=== PATIENT | female | born 1990 | race Caucasian/White ===

== ENCOUNTER 2017-10-08 11:20 | Emergency (ER) | payer SELFPAY ==
[~2017-10-08] VITALS: Ht 177.8 cm; Wt 122.5 kg
[~2017-10-08 11:20] MED LIST: ABILIFY10 MG PO; ALBUTEROL0.09 MG/A2 IH; ALBUTEROL0.09 MG/A2 INH; AMOXICILLIN500 MG PO; AMOXIL500 MG PO; ANTI-GAS 8080 MG PO; ATENOLOL25 MG PO; ATIVAN1 MG PO; Anusol Hc,Anuco25 MG PO; BACTRIM DS 8001 TA1 PO; BIAXIN500 MG PO; BIRTH CONTROL PO; CATAFLAM50 MG PO; CIPRO250 MG PO; CIPRO500 MG PO; CLARITIN10 MG PO; DARVOCET N 1001 TAB PO; DAYPRO600 M1 PO; DEPO-SUBQ104 MG/0.6 SC; DILANTIN PO; DONNATAL1 TAB PO; FLAGYL500 MG PO; GEODON20 MG PO; GEODON40 MG PO; HYDROCODONE BIT1 T11 PO; KEFLEX500 MG PO; KENALOG0.025% TP; KLONOPIN2 MG PO; LEVAQUIN750 MG PO; LEVOFLOXACIN500 MG PO; LITHIUM CARBON150 MG PO; LOMOTIL 0.025 M1 TA1 PO; MACROBID100 M1 PO; MEDROL DOSEPAK4 MG PO; MOTRIN800 MG PO; NKHM; OMNICEF300 MG PO; PERCOCET 325 MG1 TA2 PO; PREDNICOT20 MG PO; PREDNISONE20 M1 PO; PRENA1 CHEW1 CT1 PO; PRENATA CHEWAB1 EACH PO; PRILOSEC20 M1 PO; PROTONIX40 MG PO; PROVENTIL0.09 MG/AC IH; Phenergan25 MG PO; REGLAN10 M1 PO; RISPERDAL1 MG PO; ROBITUSSIN AC 110 ML PO; SAPHRIS5 MG PO; SEROQUEL50 MG PO; SINGULAIR5 MG PO; TESSALON PERLE200 MG PO; TOPAMAX100 MG PO; TOPAMAX50 MG PO; TORADOL10 MG PO; VALIUM10 MG PO; VALIUM5 MG PO; VICODIN 5/500 505 MG PO; VISTARIL25 M1 PO; VOLTAREN50 M1 PO; XANAX0.25 MG PO; XANAX1 MG PO; ZITHROMAX Z PA250 MG PO; ZITHROMAX250 MG PO; ZOFRAN ODT4 MG SL; ZOFRAN8 MG PO; ZYRTEC10 MG PO
[2017-10-08 11:34] VITALS: BP 128/80
== END 2017-10-08 13:14 | disposition home or self-care (01) ==
LOC: ED 11:20
DX: S92.511A Displaced fracture of proximal phalanx of right lesser toe(s), initial encounter for closed fracture (principal); F41.9 Anxiety disorder, unspecified; F17.200 Nicotine dependence, unspecified, uncomplicated; F10.10 Alcohol abuse, uncomplicated; W22.8XXA Striking against or struck by other objects, initial encounter; Y93.89 Activity, other specified; Y92.89 Other specified places as the place of occurrence of the external cause; Y99.8 Other external cause status

== ENCOUNTER 2017-11-25 13:52 | Emergency (ER) | payer SELFPAY ==
[~2017-11-25] VITALS: Ht 177.8 cm; Wt 131.5 kg
[2017-11-25] MEDS ORDERED: LEVETIRACETAM500 MG PO (14:22)
[2017-11-25] MEDS ORDERED: NATURE'S BLEND F1 MG PO (14:23)
[2017-11-25] MEDS ORDERED: BACLOFEN20 M1 PO (14:23)
[2017-11-25] MEDS ORDERED: MIRTAZAPINE7.5 MG PO (14:24)
[2017-11-25] MEDS ORDERED: PROPRANOLOL HCL10 MG PO (14:24)
[2017-11-25] MEDS ORDERED: DIVALPROEX SOD250 MG PO (14:24)
[2017-11-25 15:04] LABS: HEMOGLOBIN 14.3 g/dl (12.0-16.0); LYMPH # 2.6 10*3/uL (1.3-4.4); LYMPH % 30.2 % (27.0-41.0); MEAN CELL VOLUME 92.8 fl (81.0-99.0); MEAN CORPUSCULAR HGB 30.2 pg (27.0-31.0); MEAN CORPUSCULAR HGB CONC 32.5 g/dl (33.0-37.0); MEAN PLATELET VOLUME 8.7 fl (9.6-12.3); MONO # 0.6 10*3/uL (0.1-1.0); MONO % 6.7 % (3.0-9.0); NEUT # 5.3 10*3/uL (2.3-7.9); NEUT % 62.9 % (47.0-73.0); PLATELET COUNT AUTOMATED 316 10*3/uL (130-400); RED BLOOD COUNT 4.74 10*6/uL (4.10-5.10); RED CELL DISTRI WIDTH 12.4 % (0-14.5); WHITE BLOOD COUNT 8.5 10*3/uL (4.8-10.8)
[2017-11-25 15:19] LABS: ALBUMIN 3.8 gm/dl (3.1-4.5); ALKALINE PHOSPHATASE 82 U/L (45-117); BUN 11 mg/dl (7-24); CHLORIDE 104 mmol/L (98-107); POTASSIUM 3.9 mmol/L (3.5-5.1); SGOT/AST 12 IU/L (3-35); SGPT/ALT 19 U/L (12-78); SODIUM 140 mmol/L (136-145); TOTAL PROTEIN 8.9 gm/dL (6.4-8.2)
[2017-11-25 18:12] VITALS: BP 110/68
[2017-11-25] MEDS ORDERED: FIORICET 50-301 EACH PO (18:19)
== END 2017-11-25 18:14 | disposition home or self-care (01) ==
LOC: ED 13:52
PROVIDERS: Nurse Practitioner Family
DX: G43.909 Migraine, unspecified, not intractable, without status migrainosus (principal); F17.200 Nicotine dependence, unspecified, uncomplicated; Z79.899 Other long term (current) drug therapy

== ENCOUNTER 2017-12-08 17:22 | Emergency (ER) | payer SELFPAY ==
[~2017-12-08] VITALS: Ht 177.8 cm; Wt 113.4 kg
[~2017-12-08 17:22] MED LIST changes: +BACLOFEN20 M1 PO; +DIVALPROEX SOD250 MG PO; +FIORICET 50-301 EACH PO; +LEVETIRACETAM500 MG PO; +MIRTAZAPINE7.5 MG PO; +NATURE'S BLEND F1 MG PO; +PROPRANOLOL HCL10 MG PO
[2017-12-08 17:34] VITALS: BP 139/71
[2017-12-08 18:09] LABS: BASO % 0.1 % (0.0-1.0); HEMATOCRIT 39.5 % (37.0-47.0); HEMOGLOBIN 13.2 g/dl (12.0-16.0); LYMPH # 1.3 10*3/uL (1.3-4.4); LYMPH % 8.5 % (27.0-41.0); MEAN CELL VOLUME 89.2 fl (81.0-99.0); MEAN CORPUSCULAR HGB 29.8 pg (27.0-31.0); MEAN CORPUSCULAR HGB CONC 33.4 g/dl (33.0-37.0); MEAN PLATELET VOLUME 8.6 fl (9.6-12.3); MONO # 0.7 10*3/uL (0.1-1.0); MONO % 4.2 % (3.0-9.0); NEUT # 13.6 10*3/uL (2.3-7.9); NEUT % 86.7 % (47.0-73.0); PLATELET COUNT AUTOMATED 310 10*3/uL (130-400); RED BLOOD COUNT 4.43 10*6/uL (4.10-5.10); RED CELL DISTRI WIDTH 12.3 % (0-14.5); WHITE BLOOD COUNT 15.6 10*3/uL (4.8-10.8)
[2017-12-08 18:23] LABS: ALBUMIN 3.4 gm/dl (3.1-4.5); ALKALINE PHOSPHATASE 87 U/L (45-117); BUN 12 mg/dl (7-24); CHLORIDE 105 mmol/L (98-107); CREATININE 0.98 mg/dL (0.55-1.02); POTASSIUM 3.3 mmol/L (3.5-5.1); SGOT/AST 14 IU/L (3-35); SGPT/ALT 22 U/L (12-78); SODIUM 138 mmol/L (136-145); TOTAL PROTEIN 8.5 gm/dL (6.4-8.2); VALPROIC ACID (DEPAKENE) 11.6 ug/ml (50-100)
[2017-12-08 18:25] LABS: B-hCG (QUALITATIVE) NEGATIVE (NEGATIVE)
== END 2017-12-08 20:30 | disposition home or self-care (01) ==
LOC: ED 17:22
PROVIDERS: Emergency Medicine
DX: G40.409 Other generalized epilepsy and epileptic syndromes, not intractable, without status epilepticus (principal); R11.2 Nausea with vomiting, unspecified; G43.909 Migraine, unspecified, not intractable, without status migrainosus; F17.200 Nicotine dependence, unspecified, uncomplicated; Z79.899 Other long term (current) drug therapy

== ENCOUNTER 2018-04-22 05:31 | Emergency (ER) | payer SELFPAY ==
[~2018-04-22] VITALS: Ht 177.8 cm; Wt 113.4 kg
[2018-04-22 05:34] VITALS: BP 137/80
[2018-04-22] MEDS ORDERED: CLINDAMYCIN150 MG PO (05:38)
== END 2018-04-22 06:24 | disposition home or self-care (01) ==
LOC: ED 05:31
DX: K08.89 Other specified disorders of teeth and supporting structures (principal); G40.802 Other epilepsy, not intractable, without status epilepticus; G43.909 Migraine, unspecified, not intractable, without status migrainosus; Z98.890 Other specified postprocedural states; Z79.899 Other long term (current) drug therapy; Z88.8 Allergy status to other drugs, medicaments and biological substances

== ENCOUNTER 2019-06-30 08:41 | Emergency (ER) | payer SELFPAY ==
[~2019-06-30] VITALS: Ht 177.8 cm; Wt 104.3 kg
[~2019-06-30 08:41] MED LIST changes: +CLINDAMYCIN150 MG PO; +DICYCLOMINE HCL10 MG PO
[2019-06-30 08:43] VITALS: BP 136/82
[2019-06-30 09:31] LABS: BASO % 0.2 % (0.0-1.0); HEMATOCRIT 38.8 % (37.0-47.0); HEMOGLOBIN 12.8 g/dl (12.0-16.0); LYMPH # 1.8 10*3/uL (1.3-4.4); LYMPH % 31.1 % (27.0-41.0); MEAN CELL VOLUME 92.2 fl (81.0-99.0); MEAN CORPUSCULAR HGB 30.4 pg (27.0-31.0); MONO # 0.4 10*3/uL (0.1-1.0); MONO % 6.4 % (3.0-9.0); NEUT # 3.6 10*3/uL (2.3-7.9); PLATELET COUNT AUTOMATED 286 10*3/uL (130-400); RED BLOOD COUNT 4.21 10*6/uL (4.10-5.10); RED CELL DISTRI WIDTH 12.1 % (0-14.5); WHITE BLOOD COUNT 5.8 10*3/uL (4.8-10.8)
[2019-06-30 09:45] LABS: ALBUMIN 3.6 gm/dl (3.1-4.5); ALKALINE PHOSPHATASE 66 U/L (45-117); BUN 11 mg/dl (7-24); CHLORIDE 109 mmol/L (98-107); CREATININE 0.93 mg/dL (0.55-1.02); POTASSIUM 3.6 mmol/L (3.5-5.1); SGOT/AST 19 IU/L (3-35); SGPT/ALT 30 U/L (12-78); SODIUM 141 mmol/L (136-145); TOTAL PROTEIN 7.3 gm/dL (6.4-8.2)
[2019-06-30 09:48] LABS: BETA-HCG, QUANT < 1.0 mIU/mL (1-3)
== END 2019-06-30 10:36 | disposition home or self-care (01) ==
LOC: ED 08:41
PROVIDERS: Nurse Practitioner Family
DX: N93.8 Other specified abnormal uterine and vaginal bleeding (principal); F17.200 Nicotine dependence, unspecified, uncomplicated; Z79.899 Other long term (current) drug therapy; Z88.8 Allergy status to other drugs, medicaments and biological substances

== ENCOUNTER 2021-06-19 19:38 | Emergency (ER) | payer OTHER ==
[2021-06-19 19:43] VITALS: BP 150/75
== END 2021-06-19 21:57 | disposition home or self-care (01) ==
LOC: ED 19:38
DX: R06.00 Dyspnea, unspecified (principal); R14.0 Abdominal distension (gaseous); Z88.8 Allergy status to other drugs, medicaments and biological substances; Z79.899 Other long term (current) drug therapy

== ENCOUNTER 2021-12-12 09:32 | Emergency (ER) | payer OTHER ==
[~2021-12-12] VITALS: Ht 177.8 cm; Wt 121.1 kg
[2021-12-12 09:46] VITALS: BP 121/64
[2021-12-12 10:48] LABS: BASO % 0.2 % (0.0-1.0); HEMATOCRIT 43.7 % (37.0-47.0); LYMPH # 2.1 10*3/uL (1.3-4.4); LYMPH % 32.2 % (27.0-41.0); MEAN CELL VOLUME 89.4 fl (81.0-99.0); MEAN CORPUSCULAR HGB 29.7 pg (27.0-31.0); MEAN CORPUSCULAR HGB CONC 33.2 g/dl (33.0-37.0); MONO # 0.4 10*3/uL (0.1-1.0); MONO % 6.3 % (3.0-9.0); NEUT # 3.9 10*3/uL (2.3-7.9); NEUT % 61.1 % (47.0-73.0); PLATELET COUNT AUTOMATED 299 10*3/uL (130-400); RED BLOOD COUNT 4.89 10*6/uL (4.10-5.10); WHITE BLOOD COUNT 6.4 10*3/uL (4.8-10.8)
[2021-12-12 11:09] LABS: ALKALINE PHOSPHATASE 74 U/L (45-117); BUN 11 mg/dl (7-24); CHLORIDE 111 mmol/L (98-107); CREATININE 0.86 mg/dL (0.55-1.02); LIPASE 73 U/L (73-393); SGOT/AST 13 IU/L (3-35); SGPT/ALT 21 U/L (12-78); SODIUM 140 mmol/L (136-145)
[2021-12-12 11:35] LABS: BILIRUBIN Negative (Negative); BLOOD Negative (Negative); CLARITY Cloudy (Clear); COLOR Yellow (Yellow); GLUCOSE Negative (Negative); KETONE Negative (Negative); LEUKO ESTERASE 3+ (Negative); NITRITE Negative (Negative); PH 5.5 (4.5-8.0); SPECIFIC GRAVITY 1.015 (1.001-1.030)
[2021-12-12 11:44] LABS: BACTERIA TRACE; WBC 51-100 wbc/hpf (0-5)
[2021-12-12] MEDS ORDERED: MACROBID100 M1 PO (13:52)
[2021-12-12] MEDS ORDERED: NAPROXEN250 MG PO (13:52)
[2021-12-12] MEDS ORDERED: TYLENOL325 M1 PO (13:52)
[2021-12-12] MEDS ORDERED: CYCLOBENZAPRINE10 MG PO (13:58)
== END 2021-12-12 14:08 | disposition home or self-care (01) ==
LOC: ED 09:32
PROVIDERS: Emergency Medicine
DX: N39.0 Urinary tract infection, site not specified (principal); Z88.8 Allergy status to other drugs, medicaments and biological substances; Z79.899 Other long term (current) drug therapy; G43.909 Migraine, unspecified, not intractable, without status migrainosus

== ENCOUNTER 2022-03-08 07:51 | Emergency (ER) | payer OTHER ==
[~2022-03-08] VITALS: Wt 90.7 kg
[~2022-03-08 07:51] MED LIST changes: +CYCLOBENZAPRINE10 MG PO; +NAPROXEN250 MG PO; +TYLENOL325 M1 PO
[2022-03-08 07:56] VITALS: BP 130/67
[2022-03-08 08:23] LABS: BASO % 0.3 % (0.0-1.0); HEMATOCRIT 40.8 % (37.0-47.0); LYMPH # 2.3 10*3/uL (1.3-4.4); LYMPH % 35.1 % (27.0-41.0); MEAN CELL VOLUME 90.1 fl (81.0-99.0); MEAN CORPUSCULAR HGB CONC 33.3 g/dl (33.0-37.0); MEAN PLATELET VOLUME 8.6 fl (9.6-12.3); MONO # 0.4 10*3/uL (0.1-1.0); MONO % 6.5 % (3.0-9.0); NEUT # 3.8 10*3/uL (2.3-7.9); NEUT % 57.9 % (47.0-73.0); PLATELET COUNT AUTOMATED 280 10*3/uL (130-400); RED BLOOD COUNT 4.53 10*6/uL (4.10-5.10); RED CELL DISTRI WIDTH 12.2 % (0-14.5); WHITE BLOOD COUNT 6.6 10*3/uL (4.8-10.8)
[2022-03-08 08:39] LABS: BUN 12 mg/dl (7-24); CHLORIDE 109 mmol/L (98-107); CREATININE 0.95 mg/dL (0.55-1.02); POTASSIUM 3.8 mmol/L (3.5-5.1); SODIUM 140 mmol/L (136-145)
== END 2022-03-08 08:21 | disposition home or self-care (01) ==
LOC: ED 07:51
PROVIDERS: Emergency Medicine
DX: R23.3 Spontaneous ecchymoses (principal); Z88.8 Allergy status to other drugs, medicaments and biological substances; Z79.899 Other long term (current) drug therapy; G43.909 Migraine, unspecified, not intractable, without status migrainosus

== ENCOUNTER 2023-09-28 07:53 | Emergency (ER) | payer BC ==
[~2023-09-28] VITALS: Ht 177.8 cm; Wt 122.5 kg
[2023-09-28 08:20] VITALS: BP 125/70
[2023-09-28] MEDS ORDERED: TRAMADOL HCL50 MG PO (08:35)
== END 2023-09-28 09:03 | disposition home or self-care (01) ==
LOC: ED 07:53
DX: M25.512 Pain in left shoulder (principal); F41.9 Anxiety disorder, unspecified; F31.9 Bipolar disorder, unspecified; Z88.8 Allergy status to other drugs, medicaments and biological substances; Z98.890 Other specified postprocedural states

== ENCOUNTER → 2023-10-29 | Outpatient (CLI) | payer OTHER ==
[~2023-10-29] MED LIST changes: +TRAMADOL HCL50 MG PO
[2023-10-29 10:04] LABS: BASO % 0.3 % (0.0-1.0); EOS % 0.1 % (1.0-4.0); HEMATOCRIT 44.5 % (37.0-47.0); LYMPH % 28.5 % (27.0-41.0); MEAN CELL VOLUME 93.5 fl (81.0-99.0); MEAN CORPUSCULAR HGB 29.6 pg (27.0-31.0); MEAN CORPUSCULAR HGB CONC 31.7 g/dl (33.0-37.0); MEAN PLATELET VOLUME 8.9 fl (9.6-12.3); MONO # 0.6 10*3/uL (0.1-1.0); MONO % 8.6 % (3.0-9.0); NEUT # 4.4 10*3/uL (2.3-7.9); NEUT % 62.2 % (47.0-73.0); PLATELET COUNT AUTOMATED 291 10*3/uL (130-400); RED BLOOD COUNT 4.76 10*6/uL (4.10-5.10); RED CELL DISTRI WIDTH 12.2 % (0-14.5); WHITE BLOOD COUNT 7.1 10*3/uL (4.8-10.8)
[2023-10-29 10:41] LABS: ALKALINE PHOSPHATASE 63 U/L (46-116); BUN 13 mg/dl (9-23); CHLORIDE 104 mmol/L (98-107); POTASSIUM 4.1 mmol/L (3.4-5.1); SGPT/ALT 20 U/L (5-49); TOTAL PROTEIN 7.8 gm/dL (6.0-8.0)
== END | disposition home or self-care (01) ==
LOC: LAB 09:35
PROVIDERS: ATTEND Chiropractor Sports Physician
DX: R53.83 Other fatigue (principal); M35.3 Polymyalgia rheumatica

== ENCOUNTER 2024-03-08 11:11 | Emergency (ER) | payer OTHER ==
[~2024-03-08] VITALS: Ht 177.8 cm; Wt 117.9 kg
[2024-03-08 11:29] VITALS: BP 123/53
[2024-03-08] MEDS ORDERED: SODIUM CHLORIDE 0.9% 1,000 ML IV ONE (11:40)
[2024-03-08] MEDS ORDERED: MORPHINE Sulfate 2 MG/ML SYR IV ONE (11:40)
[2024-03-08 11:51] LABS: BASO % 0.3 % (0.0-1.0); HEMATOCRIT 42.1 % (37.0-47.0); LYMPH # 2.2 10*3/uL (1.3-4.4); LYMPH % 25.2 % (27.0-41.0); MEAN CORPUSCULAR HGB 30.4 pg (27.0-31.0); MEAN CORPUSCULAR HGB CONC 32.3 g/dl (33.0-37.0); MEAN PLATELET VOLUME 8.7 fl (9.6-12.3); MONO # 0.5 10*3/uL (0.1-1.0); MONO % 5.9 % (3.0-9.0); NEUT # 5.9 10*3/uL (2.3-7.9); NEUT % 68.3 % (47.0-73.0); PLATELET COUNT AUTOMATED 309 10*3/uL (130-400); RED BLOOD COUNT 4.48 10*6/uL (4.10-5.10); WHITE BLOOD COUNT 8.7 10*3/uL (4.8-10.8)
[2024-03-08 12:12] LABS: ALKALINE PHOSPHATASE 64 U/L (46-116); BUN 14 mg/dl (9-23); CHLORIDE 106 mmol/L (98-107); LIPASE 40 U/L (12-53); POTASSIUM 3.8 mmol/L (3.4-5.1); SGPT/ALT 19 U/L (5-49); TOTAL PROTEIN 7.6 gm/dL (6.0-8.0)
[2024-03-08] MEDS ORDERED: ACETAMINOPHEN 325 MG TAB PO ONE (14:05)
[2024-03-08 14:13] LABS: BILIRUBIN Negative (Negative); BLOOD Negative (Negative); CLARITY Cloudy (Clear); COLOR Yellow (Yellow); GLUCOSE Negative (Negative); KETONE Negative (Negative); LEUKO ESTERASE 3+ (Negative); NITRITE Negative (Negative); PH 5.5 (4.5-8.0); UROBILINOGEN 0.2 E.U./dl (0.0-1.0)
[2024-03-08 14:20] LABS: BACTERIA 2+; MUCOUS 1+
[2024-03-08] MEDS ORDERED: SEPTDS PO (14:29)
[2024-03-08] MEDS ORDERED: methylPREDNISolone sod succ 125 MG VIAL IM ONE (14:45)
== END 2024-03-08 14:38 | disposition home or self-care (01) ==
LOC: ED 11:11
PROVIDERS: Physician Assistant Medical
DX: N39.0 Urinary tract infection, site not specified (principal); F41.9 Anxiety disorder, unspecified; F31.9 Bipolar disorder, unspecified; Z88.8 Allergy status to other drugs, medicaments and biological substances; Z98.890 Other specified postprocedural states; Z90.49 Acquired absence of other specified parts of digestive tract

== ENCOUNTER → 2024-05-25 | Outpatient (CLI) | payer OTHER ==
[~2024-05-25] MED LIST changes: +SEPTDS PO
== END | disposition home or self-care (01) ==
LOC: MAMMO 02:10
PROVIDERS: ATTEND Emergency Medicine
DX: N64.89 Other specified disorders of breast (principal); N63.15 Unspecified lump in the right breast, overlapping quadrants; Z80.3 Family history of malignant neoplasm of breast

== ENCOUNTER → 2024-06-08 | Outpatient (CLI) | payer OTHER ==
[~2024-06-08] MED LIST changes: +SODIUM BICARBONATE 4.2% 5 ML VIAL ONE
== END | disposition home or self-care (01) ==
LOC: SDC 11:00 → EDSTATUS 11:00
PROVIDERS: ATTEND Emergency Medicine
DX: N63.41 Unspecified lump in right breast, subareolar (principal); D24.1 Benign neoplasm of right breast

== ENCOUNTER 2025-01-17 23:18 | Inpatient (IN) | payer OTHER ==
[~2025-01-17] VITALS: Ht 177.8 cm; Wt 136.3 kg
[~2025-01-17 23:18] MED LIST changes: -SODIUM BICARBONATE 4.2% 5 ML VIAL ONE
[2025-01-17 23:40] VITALS: BP 126/40
[2025-01-18 00:11] LABS: BASO % 0.3 % (0.0-1.0); EOS % 0.1 % (1.0-4.0); HEMATOCRIT 43.3 % (37.0-47.0); MEAN CELL VOLUME 91.9 fl (81.0-99.0); MEAN CORPUSCULAR HGB 30.1 pg (27.0-31.0); MEAN CORPUSCULAR HGB CONC 32.8 g/dl (33.0-37.0); MEAN PLATELET VOLUME 8.8 fl (9.6-12.3); MONO # 0.7 10*3/uL (0.1-1.0); MONO % 7.8 % (3.0-9.0); NEUT # 5.5 10*3/uL (2.3-7.9); NEUT % 58.3 % (47.0-73.0); PLATELET COUNT AUTOMATED 312 10*3/uL (130-400); RED BLOOD COUNT 4.71 10*6/uL (4.10-5.10); RED CELL DISTRI WIDTH 12.2 % (0-14.5); WHITE BLOOD COUNT 9.5 10*3/uL (4.8-10.8)
[2025-01-18 00:21] LABS: ACT PARTIAL THROMBO TIME 25.2 SECONDS (20.0-32.1)
[2025-01-18 00:33] LABS: BUN 16 mg/dl (9-23); CHLORIDE 106 mmol/L (98-107); CPK 112 U/L (34-171); POTASSIUM 3.6 mmol/L (3.4-5.1)
[2025-01-18 00:44] LABS: BILIRUBIN Negative (Negative); BLOOD Negative (Negative); CLARITY Cloudy (Clear); COLOR Yellow (Yellow); GLUCOSE Negative (Negative); KETONE Negative (Negative); LEUKO ESTERASE 3+ (Negative); NITRITE Negative (Negative); PH 5.5 (4.5-8.0); SPECIFIC GRAVITY 1.015 (1.001-1.030); UROBILINOGEN 0.2 E.U./dl (0.0-1.0)
[2025-01-18] MEDS ORDERED: ACETAMINOPHEN 325 MG TAB PO ONE (00:50)
[2025-01-18] MEDS ORDERED: MAGNESIUM SULFATE 100 ML IV ONE ×2 (00:50)
[2025-01-18] MEDS ORDERED: SODIUM CHLORIDE 0.9% 1,000 ML IV ONE ×2 (00:50)
[2025-01-18] MEDS ORDERED: SODIUM CHLORIDE 0.9% 100 ML BAG IV ONE (01:00)
[2025-01-18] MEDS ORDERED: IOHEXOL 350 MG/ML 100 ML VIAL IV ONE (01:00)
[2025-01-18 01:20] LABS: BACTERIA 3+; EPITHELIAL CELLS TNTC; WBC 41-50 wbc/hpf (0-5)
[2025-01-18] MEDS ORDERED: MORPHINE Sulfate 2 MG/ML SYR IV ONE ×2 (03:15→13:50)
[2025-01-18] MEDS ORDERED: Metoclopramide Hydrochloride 10 MG/2 ML VIAL IV ONE (03:15)
[2025-01-18] MEDS ORDERED: Ciprofloxacin Hydrochloride 500 MG TAB PO ONE (03:20)
[2025-01-18] MEDS ORDERED: BISACODYL 10 MG SUPP R PRN (03:45)
[2025-01-18] MEDS ORDERED: ACETAMINOPHEN 325 MG TAB PO PRN (03:45)
[2025-01-18] MEDS ORDERED: BISACODYL 5 MG TAB PO PRN (03:45)
[2025-01-18] MEDS ORDERED: Ondansetron Hydrochloride 4 MG/2 ML VIAL IV PRN (03:45)
[2025-01-18] MEDS ORDERED: ACETAMINOPHEN 650 MG SUPP R PRN (03:45)
[2025-01-18] MEDS ORDERED: Magnesium Hydroxide 30 ML UDC PO PRN (03:45)
[2025-01-18 05:50] VITALS: BP 111/51
[2025-01-18] MEDS ORDERED: Pantoprazole Sodium 40 MG TAB PO SCH (06:00)
[2025-01-18 06:51] LABS: BASO % 0.2 % (0.0-1.0); HEMATOCRIT 39.7 % (37.0-47.0); MEAN CELL VOLUME 92.8 fl (81.0-99.0); MEAN CORPUSCULAR HGB 29.9 pg (27.0-31.0); MEAN CORPUSCULAR HGB CONC 32.2 g/dl (33.0-37.0); MEAN PLATELET VOLUME 8.9 fl (9.6-12.3); MONO # 0.6 10*3/uL (0.1-1.0); MONO % 7.7 % (3.0-9.0); NEUT # 4.6 10*3/uL (2.3-7.9); NEUT % 56.9 % (47.0-73.0); PLATELET COUNT AUTOMATED 286 10*3/uL (130-400); RED BLOOD COUNT 4.28 10*6/uL (4.10-5.10); RED CELL DISTRI WIDTH 12.4 % (0-14.5); WHITE BLOOD COUNT 8.1 10*3/uL (4.8-10.8)
[2025-01-18 07:19] LABS: ACT PARTIAL THROMBO TIME 25.6 SECONDS (20.0-32.1)
[2025-01-18 07:23] LABS: VITAMIN D, 25-HYDROXY 21.7 ng/mL (30-100)
[2025-01-18 07:25] LABS: ALKALINE PHOSPHATASE 55 U/L (46-116); BUN 12 mg/dl (9-23); CHLORIDE 108 mmol/L (98-107); CHOLESTEROL 182 mg/dL (<200); FREE T4 1.25 ng/dl (0.89-1.76); LDL CHOLESTEROL 126 mg/dL (9-159); POTASSIUM 3.7 mmol/L (3.4-5.1); SGPT/ALT 15 U/L (5-49); TOTAL PROTEIN 6.6 gm/dL (6.0-8.0); TRIGLYCERIDES 68 mg/dl (<150)
[2025-01-18 07:31] VITALS: BP 92/49
[2025-01-18 07:43] VITALS: BP 108/68
[2025-01-18] MEDS ORDERED: LORazepam 1 MG TAB PO ONE (08:50)
[2025-01-18] MEDS ORDERED: Enoxaparin Sodium 40 MG/0.4 ML SYR SC SCH (10:00)
[2025-01-18] MEDS ORDERED: CIPROFLOXACIN 200 ML IV SCH (10:00)
[2025-01-18 11:28] VITALS: BP 106/74
[2025-01-18] MEDS ORDERED: ASPIRIN, CHEWABLE 81 MG TAB PO SCH (14:55)
[2025-01-18] MEDS ORDERED: Clopidogrel Hydrogen Sulfate 75 MG TAB PO SCH (14:55)
[2025-01-18 16:00] VITALS: BP 128/75
[2025-01-18 20:00] VITALS: BP 112/62
[2025-01-18] MEDS ORDERED: SODIUM CHLORIDE 0.9% 500 ML IV ONE (22:10)
[2025-01-18] MEDS ORDERED: SUMAtriptan SUCCINATE 50 MG TAB PO ONE (22:30)
[2025-01-19] VITALS: BP 106/60
[2025-01-19 08:00] VITALS: BP 126/53
[2025-01-19] MEDS ORDERED: methylPREDNISolone 4 MG TAB PO ONE (08:20)
[2025-01-19] MEDS ORDERED: NAPROXEN 250 MG TAB PO ONE (08:25)
[2025-01-19] MEDS ORDERED: SUMAtriptan SUCCINATE 50 MG TAB PO ONE (08:25)
[2025-01-19] MEDS ORDERED: Cholecalciferol 2,000 UNIT TABLET (50 MCG) PO SCH (10:00)
[2025-01-19] MEDS ORDERED: ASPIRIN CHILDRE81 MG PO (10:14)
[2025-01-19] MEDS ORDERED: CLOPIDOGREL75 MG PO (10:14)
[2025-01-19] MEDS ORDERED: VITAMIN D350 MCG PO (10:14)
[2025-01-19 12:00] VITALS: BP 105/59
[2025-01-19 16:00] VITALS: BP 119/62
== END 2025-01-19 17:43 | disposition home or self-care (01) | DRG 69 ==
LOC: ED 23:18 → EDHOLD 01-18 03:28 → 4E 01-18 04:01
PROVIDERS: Emergency Medicine; ADMIT Internal Medicine; ATTEND Internal Medicine
DX: G45.9 Transient cerebral ischemic attack, unspecified (principal); H54.62 Unqualified visual loss, left eye, normal vision right eye; E66.9 Obesity, unspecified; G40.909 Epilepsy, unspecified, not intractable, without status epilepticus; E55.9 Vitamin D deficiency, unspecified; R73.9 Hyperglycemia, unspecified; F41.9 Anxiety disorder, unspecified; Z98.890 Other specified postprocedural states; Z86.03 Personal history of neoplasm of uncertain behavior; Z87.891 Personal history of nicotine dependence

== ENCOUNTER 2025-08-12 11:22 | Emergency (ER) | payer OTHER ==
[~2025-08-12] VITALS: Wt 113.4 kg
[~2025-08-12 11:22] MED LIST changes: +ASPIRIN CHILDRE81 MG PO; +CLOPIDOGREL75 MG PO; +VITAMIN D350 MCG PO
[2025-08-12 11:31] VITALS: BP 127/71
[2025-08-12] MEDS ORDERED: Acetaminophen/Oxycodone 5 MG/325 MG TABLET PO ONE (11:40)
[2025-08-12] MEDS ORDERED: PENICILLIN V POTASSIUM 500 MG TAB PO ONE (11:40)
[2025-08-12] MEDS ORDERED: PENICILLIN-VK500 M1 PO (12:37)
== END 2025-08-12 12:40 | disposition home or self-care (01) ==
LOC: ED 11:22
DX: K04.7 Periapical abscess without sinus (principal); Z88.8 Allergy status to other drugs, medicaments and biological substances; F41.9 Anxiety disorder, unspecified; F31.9 Bipolar disorder, unspecified; Z87.440 Personal history of urinary (tract) infections; Z98.890 Other specified postprocedural states; Z90.721 Acquired absence of ovaries, unilateral